=== PATIENT | female | born 1985 | race Hispanic/Latino ===

== ENCOUNTER 2019-08-30 09:11 | Emergency (ER) | payer SELFPAY ==
[2019-08-30] MEDS ORDERED: Diazepam 5 MG TAB ONE (09:55)
[2019-08-30] MEDS ORDERED: Ketorolac Tromethamine 60 MG/2 ML VIAL ONE (09:56)
== END 2019-08-30 10:13 | disposition home or self-care (01) ==
LOC: MADERS 09:11
DX: M43.6 Torticollis (principal)
CPT/HCPCS: 96372; 99283; J1885